=== PATIENT | male | born 1950 | race Caucasian/White ===

== ENCOUNTER 2018-01-01 09:58 | Emergency (ER) | payer MEDICARE, BC ==
[~2018-01-01] VITALS: Ht 167.6 cm; Wt 90.9 kg
[2018-01-01 10:14] VITALS: TEMP 98.6
[2018-01-01] MEDS ORDERED: PERCOCET 325 MG1 TA2 PO (13:06)
[2018-01-01 13:47] VITALS: BP 139/88; PULSE 72
== END 2018-01-01 13:48 | disposition home or self-care (01) ==
LOC: COL.ER 09:58
DX: S82.002A Unspecified fracture of left patella, initial encounter for closed fracture (principal); W01.0XXA Fall on same level from slipping, tripping and stumbling without subsequent striking against object, initial encounter; Y92.009 Unspecified place in unspecified non-institutional (private) residence as the place of occurrence of the external cause
CPT/HCPCS: J1170; L1846